=== PATIENT | male | born 1985 | race Two or more races ===

== ENCOUNTER 2025-01-14 02:28 | Emergency (ER) | payer BC, SELFPAY ==
[2025-01-14 02:29] VITALS: BMI 30.2
[2025-01-14 02:36] VITALS: BP 150/105; PULSE 70; RESP 16; TEMP 37.7; O2SAT 100; BMI 30.2
--- NOTE | 2025-01-14 02:44 | XR_ITS ---
Examination: PA chest single view TECHNIQUE: Upright PA chest single view Date and time: January 14, 2025 at 0256 hours, comparison October 05, 2020 INDICATIONS: Right-sided chest pain and back pain today FINDINGS: Normal heart size. Lungs are clear. The osseous structures are intact. IMPRESSION: No active disease.
--- NOTE | 2025-01-14 02:44 | EKG_ITS ---
[facility] Test Date: 2025-01-14 Pat Name: MIKEY GALVEZ Department: Room: - Gender: Male [employer]: : 1985 Requested By: Helio Rivers Order Number: [id number] Reading MD: Helio Rivers Measurements Intervals [place] Rate: 58 P: 55 NM: 158 QRS: 57 QRSD: 98 T: 9 QT: 415 QTc: 410 Interpretive Statements SINUS BRADYCARDIA No previous ECG available for comparison /store/S0/[id number]
--- NOTE | 2025-01-14 02:44 | XR_ITS ---
Examination: Ultrasound soft tissue extremity right shoulder TECHNIQUE: Grayscale sonographic images soft tissue right shoulder Date and time: January 14, 2025, 0310 hours INDICATIONS: Patient states a lump on the upper right shoulder 2 years FINDINGS: No cystic or solid mass noted IMPRESSION: No cystic or solid mass noted, consider MRI shoulder without contrast follow-up
--- NOTE | 2025-01-14 02:45 | EDRME_ITS ---
Rapid Medical Screening Exam [facility] Arrival date/time: 01/14/25 02:28 39M with no significant PMH presents to ED with sharp tearing, R upper back pain and intermittent CP and SOB. Patient also has had a lump on that same area for several years. Patient denies URI symptoms and drug/alcohol use. Patient feels like it's on the outside. Pain is worse when lying down, but better when taking a deep breath. Chief Complaint: Back Pain/Injury Vital signs: Vital Signs Temperature 99.8 F 01/14/25 02:36 Pulse Rate 70 01/14/25 02:36 Respiratory Rate 16 01/14/25 02:36 Blood Pressure 150/105 H 01/14/25 02:36 Pulse Oximetry (%) 100 01/14/25 02:36 Oxygen Delivery Method Room Air 01/14/25 02:36
--- NOTE | 2025-01-14 03:27 | PD.EDBACK ---
ED Back Injury Pain RME/HPI General Chief Complaint: Back Pain/Injury Stated Complaint: Pain upper back Time Seen by Provider: 01/14/25 03:22 Arrival date/time: 01/14/25 02:28 RME / HPI RME / HPI Narrative: 01/14/25 02:28 39M with no significant PMH presents to ED with sharp tearing, R upper back pain and intermittent CP and SOB. Patient also has had a lump on that same area for several years. Patient denies URI symptoms and drug/alcohol use. Patient feels like it's on the outside. Pain is worse when lying down, but better when taking a deep breath. DR. CHOWDHURY MAIN ED EVALUATION: 39 y/o male with Hx of HTN presents to ED c/o severe BL upper back pain x approximately 6 hours. Denies any recent injury or trauma. Denies any chest pain. No other concerns or complaints expressed at this time. Related Data Allergies Allergy/AdvReac Type Severity Reaction Status Date / Time No Known Allergies Allergy Verified 01/14/25 02:31 Review of Systems Review of Systems Systems Reviewed: All systems reviewed, normal except as documented Past Medical History Past Medical History CARDIAC: Positive Hypertension ED Exam Narrative Physical exam: Generally patient alert and oriented x 3 in no obvious distress heart is regular rate and rhythm without rubs or gallops lungs auscultation equal bilaterally abdomen soft bowel sounds present nondistended nontender musculoskeletal exam patient has an approximately 8 x 10 cm movable mass most likely lipoma to the central upper portion of the back. Course Course Course Narrative: CXR is ordered for determining the etiology of shortness of breath. Quality Measures none Orders Category Date Time Status EKG (ED ONLY) *Do not use* NOW Care 01/14/25 02:44 Completed EKG (ED Only) Stat Exams 01/14/25 02:44 Draft US sft tissue upper back chest Stat Exams 01/14/25 02:44 Taken XR chest 1V portable Stat Exams 01/14/25 02:44 Taken CBC Stat Lab 01/14/25 03:00 Completed Comprehensive Metabolic Panel Stat Lab 01/14/25 03:00 Completed Troponin I Stat Lab 01/14/25 03:00 Completed Ketorolac Inj [Toradol Inj] Med 01/14/25 03:36 Discontinued 30 mg IVP X1 ONE Vital Signs Vital signs: Vital Signs Temperature 99.8 F 01/14/25 02:36 Pulse Rate 70 01/14/25 02:36 Respiratory Rate 16 01/14/25 02:36 Blood Pressure 150/105 H 01/14/25 02:36 Pulse Oximetry (%) 100 01/14/25 02:36 Oxygen Delivery Method Room Air 01/14/25 02:36 Back Pain / Injury MDM Narrative MDM Narrative:: Scribe Attestation: I, Becky Kirby, am scribing for and in the presence of Dr. Chowdhury. Provider Notation: Although this document has been carefully reviewed, there may still be some phonetic and other typographical errors.? These errors are purely grammatical due to imperfections in the software program and should not be construed in any way to? compromise the substance of the patient's medical care during this visit. I interpreted all labs. Troponin is not elevated. Chest x-ray is normal with a normal cardiac silhouette. EKG is nonischemic. I do not believe this patient to have an acute coronary syndrome or dissecting thoracic aortic aneurysm. Heart score is 1. Patient data External records reviewed:: [facility] previous records (No prior ED records available for review.) Clinical information provided by:: patient Social determinants that could affect healthcare access:: none Patient has the following chronic illnesses:: HTN How is presenting disease/condition affected by chronic disease/condition?: exacerbated by Evaluation data The following diagnostics were reviewed and interpreted by me:: lab results, radiology exam(s) and EKG tracing(s) Lab and/or radiology exams considered but not ordered:: None Interpretation Summary: RADIOLOGY Soft Tissue US: Chest X-Ray: Medications / Prescriptions Medications or Prescriptions considered but not ordered:: None Medication administrations:: Medication Administration History Discontinued Medications Ketorolac Tromethamine (Ketorolac Inj 30 Mg/Ml Vial) 30 mg IVP X1 ONE Stop: 01/14/25 03:37 See above if any Consultations Consultation(s) initiated? (list below): No Diagnosis Differential diagnosis back pain/injury: thoracic back pain, discitis and other (Degenerative disc disease, Herniated disk, Muscle strain) Most likely diagnosis given after review of the tests above:: Musculoskeletal pain Admission Indicated Admission indicated?: not indicated Explain why admission is indicated or not indicated:: Patient does not meet admission criteria. Admission Request Was there a request for admission?: No Disposition Plan Disposition Plan: other (specify) Discharge Plan Plan Patient Disposition: HOME (Self Care) Prescriptions/Referrals Referrals: No Primary/Family,Physician [Primary Care Provider] - In 1 week Problem List Clinical Impression: Musculoskeletal pain, Lipoma Patient/Caregiver Discharge Instructions Additional Instructions: Take your high blood pressure medication every day as prescribed. You may use Tylenol and/or ibuprofen as needed for pain. Follow-up with your doctor. Return to ER as needed or if condition worsens. Print Language: Togolese Stand Alone Forms: [employer] Info., Patient Portal Info Letter
[2025-01-14 03:28] VITALS: BP 152/100; PULSE 65; RESP 18; O2SAT 97
[2025-01-14 03:29] LABS: Basophils # (Auto) 0.0 Thou/mm3 (0.0-0.2); Basophils % (Auto) 0 % (0-2.5); Eosinophils # (Auto) 0.5 Thou/mm3 (0.0-0.5); Eosinophils % (Auto) 4 % (0-10); Hematocrit 44.4 % (41.0-53.0); Hemoglobin 15.3 g/dL (13.5-16.0); Immature Granulocytes Auto 0.01 Thou/mm3 (0.00-0.00); Lymphocytes # (Auto) 2.8 Thou/mm3 (1.0-4.8); Lymphocytes % (Auto) 27 % (10-50); Mean Corpuscular HGB Conc 34.5 g/dl (31.0-37.0); Mean Corpuscular Hemoglobin 30.8 pg (25.0-35.0); Mean Corpuscular Volume 90 fL (80-100); Monocytes # (Auto) 0.7 Thou/mm3 (0.0-0.8); Monocytes % (Auto) 7 % (0-12); Neutrophils # (Auto) 6.5 Thou/mm3 (1.8-7.7); Neutrophils % (Auto) 62 % (37-80); Nucleated Red Blood Cell # 0.00 Thou/mm3 (0.00-0.00); Nucleated Red Blood Cell % 0 /100 WBC (0); Platelet Count 279 Thou/mm3 (140-440); RDW Standard Deviation 40.5 fL (35.1-43.9); Red Blood Count 4.96 Miln/mm3 (4.50-5.90); White Blood Count 10.5 Thou/mm3 (3.8-10.6)
[2025-01-14 03:38] LABS: Alanine Aminotransferase 18 U/L (10-49); Albumin, Serum 4.6 gm/dL (3.5-5.0); Albumin/Globulin Ratio 1.6 (1.2-2.2); Alkaline Phosphatase 77 U/L (46-116); Anion Gap 8 (7-16); Aspartate Amino Transferase 19 U/L (0-34); BUN/Creatinine Ratio 10 Ratio (12-20); Bilirubin,Total 0.4 mg/dL (0.3-1.2); Blood Urea Nitrogen 12 mg/dL (9-23); Calcium 9.8 mg/dL (8.3-10.6); Calcium (Corrected) 9.8 mg/dL (8.5-10.1); Carbon Dioxide 29.4 mMol/L (20.0-31.0); Chloride 106 mMol/L (98-107); Creatinine (Component) 1.2 mg/dL (0.6-1.3); Estimated Creatinine Clearance 78.1 mL/min (>60); Globulin 2.9 gm/dL (2.3-3.5); Glucose 99 mg/dL (74-106); Osmolality,Calculated 284 (275-295); Potassium 4.0 mMol/L (3.4-5.1); Sodium 143 mMol/L (136-145); Total Protein 7.5 gm/dL (5.7-8.2); Troponin I < 0.020 ng/mL (0.0-0.045); eGFR > 60 See Note
--- NOTE | 2025-01-14 04:05 | PRELIM_ITS ---
Soft tissue ultrasound of the Right upper back. January 14, 2025 0310 hours Clinical history: Bump on right upper back. Comparison: No prior study is available for comparison. Findings: Ultrasound evaluation of the right upper shoulder region was performed. No solid mass or fluid collection is demonstrated. There is no sonographic evidence of free fluid in the area of concern. The subcutaneous and soft tissue planes appear preserved. Impression: No sonographic evidence of mass or fluid collection in the right upper shoulder. Report Electronically Signed By: Guerrero Barajas 01/14/2025 4:04:50 AM [EST]
[2025-01-14 04:09] VITALS: TEMP 36.6
[2025-01-14] MEDS: KETOROLAC INJ 30 MG/ML VIAL IVP (04:09)
[2025-01-14 04:20] VITALS: BP 162/99; PULSE 64; RESP 17; O2SAT 96
--- NOTE | 2025-01-14 04:36 | PC.NURSE ---
pts pain reassesed to a 4
== END 2025-01-14 04:20 | disposition home or self-care (01) ==
PROVIDERS: Physician Assistant; Emergency Provider Emergency Medicine
DX: D17.1 Benign lipomatous neoplasm of skin and subcutaneous tissue of trunk (principal); R07.9 Chest pain, unspecified; R00.1 Bradycardia, unspecified; M79.18 Myalgia, other site; I10 Essential (primary) hypertension
CPT/HCPCS: 36415; 71045; 76604; 80053; 84484; 85025; 93005; 96374; 99283; J1885

== ENCOUNTER 2025-01-16 06:16 | Emergency (ER) | payer BC, SELFPAY ==
[2025-01-16 06:18] VITALS: BMI 30.2
[2025-01-16 06:33] VITALS: BP 194/122; BP 201/117; PULSE 65; RESP 19; TEMP 36.3; O2SAT 99
--- NOTE | 2025-01-16 06:35 | EKG_ITS ---
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
--- NOTE | 2025-01-16 06:40 | XR_ITS ---
Examination: Abdomen sonogram, Limited Date and time of exam: January 16, 2025 0822 hours INDICATIONS: Epigastric pain today Technique: Real-time blake scale transabdominal sonographic images of the upper abdomen obtained. Findings: Gallbladder sludge No gallstones Gallbladder wall 0.39 cm with possible edema Common bile duct 0.5 cm Pancreatic head 2.2 cm Liver 15.4 cm fatty infiltration no focal liver lesions Normal hepatopedal portal venous flow Patent IVC IMPRESSION: Suspicious for acalculous cholecystitis, suggest HIDA scan or MRCP follow-up
--- NOTE | 2025-01-16 06:43 | EDNOTE_ITS ---
<Statement entered by Madyson Vizcarra MD - 01/16/25 17:11> As co-signing physician, I was present and available for consult prn. I concur with the plan and care as documented by the midlevel provider. ED Abdominal Pain RME/HPI General Chief Complaint: Abdominal Pain Stated complaint: EPIGASTRIC PAIN Time seen by provider: 01/16/25 06:29 Arrival date/time: 01/16/25 06:16 39-year-old male with no known medical history presents to the emergency room with a chief complaint of epigastric pain x 2 days Source: patient Mode of arrival: ambulatory Limitations: no limitations Related Data Previous Rx's ?Medication ?Instructions ?Recorded hydrocodone 5 mg-acetaminophen 325 1 tab PO BID PRN pa in #10 tabs 01/16/25 mg tablet Allergies Allergy/AdvReac Type Severity Reaction Status Date / Time No Known Allergies Allergy Verified 01/16/25 06:17 Review of Systems Review of Systems Systems Reviewed: All systems reviewed, normal except as documented Constitutional Constitutional: Reports system reviewed and no additional complaints, except as documented, Denies fatigue, Denies fever(s), Denies headache(s) and Denies weakness Eyes Eyes: Reports system reviewed and no additional complaints, except as documented, Denies blurry vision and Denies change in vision ENT Ears, Nose, Mouth, and Throat: Reports system reviewed and no additional complaints, except as documented, Denies otalgia, Denies headache(s), Denies nasal congestion, Denies throat swelling and Denies vertigo Cardiovascular Cardiovascular: Reports system reviewed and no additional complaints, except as documented, Denies chest pain, Denies dyspnea and Denies dyspnea on exertion Respiratory Respiratory: Reports system reviewed and no additional complaints, except as documented, Denies chest congestion, Denies cough, Denies dyspnea, Denies dyspnea on exertion and Denies wheezing Gastrointestinal Gastrointestinal: Reports system reviewed and no additional complaints, except as documented, Reports abdominal pain, Reports cramping, Reports nausea and Reports vomiting Genitourinary Genitourinary: Reports system reviewed and no additional complaints, except as documented, Denies dysuria and Denies hematuria Musculoskeletal Musculoskeletal: Reports system reviewed and no additional complaints, except as documented and Denies back pain Integumentary/Breasts Skin/Breast: Reports system reviewed and no additional complaints, except as documented and Denies wounds Neurologic Neurologic: Reports system reviewed and no additional complaints, except as documented, Denies confusion, Denies headache(s), Denies lack of coordination, Denies vertigo and Denies weakness Psychiatric Psychiatric: Reports system reviewed and no additional complaints, except as documented, Denies anxiety, Denies confusion, Denies depression, Denies paranoia, Denies suicidal ideation and Denies tactile hallucinations Endocrine Endocrine: Reports system reviewed and no additional complaints, except as documented and Denies fatigue Hematologic/Lymphatic Hematologic/Lymphatic: Reports system reviewed and no additional complaints, except as documented and Denies lymphadenopathy Allergic/Immunologic Allergic/Immunologic: Reports system reviewed and no additional complaints, except as documented, Denies throat swelling, Denies urticaria and Denies wheezing Past Medical History Past Medical History CARDIAC: Positive Hypertension; Negative Congestive Heart Failure RESPIRATORY: Negative Chronic Obstructive Pulmonary Disease (COPD) GENITOURINARY: Negative Renal Disease ENDOCRINE: Negative Diabetes Mellitus Type 1 or Diabetes Mellitus Type 2 Social History SMOKING STATUS: Never smoker ED Exam General Limitations: Present no limitations General appearance: Present alert and in no apparent distress Head Head exam: Present atraumatic Eye Eye exam: Present normal appearance, PERRL and EOMI ENT ENT exam: Present normal exam, normal oropharynx and mucous membranes moist Neck Neck exam: Present normal inspection, full ROM and trachea midline Chest Chest inspection: Present normal inspection and symmetric chest wall rise Respiratory Respiratory exam: Present normal lung sounds bilaterally Cardiovascular Cardiovascular exam: Present regular rate, normal rhythm and normal heart sounds Abdominal Exam Abdominal exam: Present soft, tenderness, normal bowel sounds and An's sign Abdominal tenderness: Present RUQ and moderate Extremities Exam Extremities exam: Present normal inspection and full ROM Back Exam Back exam: Present normal inspection and full ROM Neurological Exam Neurological exam: Present alert, oriented X3 and CN II-XII intact Psychiatric Psychiatric exam: Present normal affect and normal mood Skin Skin exam: Present warm, dry, intact and normal color Course Quality Measures none Orders Category Date Time Status EKG (ED ONLY) *Do not use* NOW Care 01/16/25 06:35 Completed EKG (ED Only) Stat Exams 01/16/25 06:35 Draft US gall bladder Stat Exams 01/16/25 06:40 Completed CBC Stat Lab 01/16/25 06:49 Completed CMP [Comprehensive Metabolic Panel] Stat Lab 01/16/25 06:49 Completed Lipase Stat Lab 01/16/25 06:49 Completed UA [Urinalysis] Stat Lab 01/16/25 06:59 Completed Urine Culture Stat Lab 01/16/25 06:59 Received HYDROcodone*/APAP 5/325 [[place] 5/325] Med 01/16/25 06:40 Discontinued 1 tab PO X1 ONE Ondansetron Odt [Zofran Odt] Med 01/16/25 06:40 Discontinued 4 mg PO X1 ONE hydrALAZINE INJ [Apresoline Inj] Med 01/16/25 06:41 Discontinued 10 mg IVP X1 ONE mg Hyd/Al Hyd/Izzy Susp [Maalox Susp] Med 01/16/25 06:40 Discontinued 30 ml PO X1 ONE Vital Signs Vital signs: Vital Signs Temperature 97.4 F 01/16/25 06:33 Pulse Rate 65 01/16/25 06:33 Respiratory Rate 19 01/16/25 06:33 Blood Pressure 201/117 H 01/16/25 06:33 Pulse Oximetry (%) 99 01/16/25 06:33 Oxygen Delivery Method Room Air 01/16/25 06:33 O2 saturation 99% within normal limits Abdominal Pain MDM MDM Narrative MDM Narrative:: 39-year-old male with no known medical history presents to the emergency room with a chief complaint of epigastric pain x 2 days Patient is hemodynamically stable and in no apparent distress Physical examination shows tenderness and pain to the patient's right upper quadrant with palpation. The patient has a positive An sign. Patient has nausea vomiting CT of the abdomen and pelvis shows suspicion for acalculous cholecystitis. The patient has a normal WBC count but some mildly elevated liver enzymes. Dr. Arias our general surgeon on-call was consulted and she came down to see the patient. Based on her and the patient's interaction Dr. Arias states that the patient is ready to go home as he wants to talk to his at home before having surgery Patient was discharged and educated to follow-up with primary care provider in the next 24 to 48 hours and return to the emergency room for any evidence of worsening signs or symptoms Patient data External records reviewed:: [facility] previous records Clinical information provided by:: patient Social determinants that could affect healthcare access:: none Patient has the following chronic illnesses:: No chronic illness How is presenting disease/condition affected by chronic disease/condition?: no chronic disease Evaluation data The following diagnostics were reviewed and interpreted by me:: lab results and radiology exam(s) Lab and/or radiology exams considered but not ordered:: Labs and radiology exams considered in order Interpretation Summary: CT abdomen and pelvis-Findings: Gallbladder sludge No gallstones Gallbladder wall 0.39 cm with possible edema Common bile duct 0.5 cm Pancreatic head 2.2 cm Liver 15.4 cm fatty infiltration no focal liver lesions Normal hepatopedal portal venous flow Patent IVC IMPRESSION: Suspicious for acalculous cholecystitis, suggest HIDA scan or MRCP follow-up Medications / Prescriptions Medications or Prescriptions considered but not ordered:: Medication given Medication administrations:: Medication Administration History Discontinued Medications Hydrocodone Bitart/Acetaminophen (Hydrocodone/Apap 5/325 Tablet) 1 tab PO X1 ONE Stop: 01/16/25 06:41 Last Admin: 01/16/25 07:52 Dose: 1 tab Documented By: TE Al Hydrox/Mg Hydrox/Simethicone (Mg Hyd/Al Hyd/Izzy (Maalox Reg) Susp 30 Ml Udc) 30 ml PO X1 ONE Stop: 01/16/25 06:41 Last Admin: 01/16/25 07:53 Dose: 30 ml Documented By: TE Hydralazine HCl (Hydralazine Inj 20 Mg/Ml Vial) 10 mg IVP X1 ONE Stop: 01/16/25 06:42 Last Admin: 01/16/25 07:59 Dose: 10 mg Documented By: TE Ondansetron HCl (Ondansetron Odt 4 Mg Tabrap) 4 mg PO X1 ONE; Protocol Stop: 01/16/25 06:41 Last Admin: 01/16/25 07:54 Dose: 4 mg Documented By: TE Medication given Consultations Consultation(s) initiated? (list below): No Diagnosis Differential diagnosis abdominal pain: abdominal pain and other (Cholecystitis/cholelithiasis) Most likely diagnosis given after review of the tests above:: Cholecystitis Admission Indicated Admission indicated?: not indicated Admission Request Was there a request for admission?: No Disposition Plan Disposition Plan: Discharge Discharge Attestation Discharge Attestation: The patient and all family members were given an opportunity to ask questions and understood the discharge instructions. Discharge instructions specifically effects, indications for sooner follow up or return to the emergency department, and the expected course of current diagnosis. Patient condition: Stable Discharge Plan Plan Patient Disposition: HOME (Self Care) Discharge Disposition comment: Stable Patient condition on transfer: Stable Prescriptions/Referrals Prescriptions/Med Rec: New hydrocodone-acetaminophen 5-325 mg tablet 1 tab PO BID MDD 10mg PRN (Reason: pain) Qty: 10 0RF Referrals: No Primary/Family,Physician [Primary Care Provider] - In 1 week Problem List Clinical Impression: Biliary colic Patient/Caregiver Discharge Instructions Education Materials: Discharge Instructions for ... Additional Instructions: Please follow-up with your primary care provider in the next 24 to 48 hours You saw the general surgeon and decided that you will have your gallbladder removed and in an outpatient setting For any evidence of worsening signs or symptoms return to the emergency room immediately Print Language: Maltese Stand Alone Forms: [employer] Info., Patient Portal Info Letter PA/APPLICATION HELPER Supervising Physician PA/APPLICATION HELPER Supervising Physician: Dr. VIZCARRA
[2025-01-16 07:10] LABS: Collection Type, Urine Clean Catch
[2025-01-16 07:19] LABS: Basophils # (Auto) 0.1 Thou/mm3 (0.0-0.2); Basophils % (Auto) 1 % (0-2.5); Eosinophils # (Auto) 0.3 Thou/mm3 (0.0-0.5); Eosinophils % (Auto) 4 % (0-10); Hematocrit 46.3 % (41.0-53.0); Hemoglobin 15.5 g/dL (13.5-16.0); Immature Granulocytes Auto 0.02 Thou/mm3 (0.00-0.00); Lymphocytes # (Auto) 2.3 Thou/mm3 (1.0-4.8); Lymphocytes % (Auto) 26 % (10-50); Mean Corpuscular HGB Conc 33.5 g/dl (31.0-37.0); Mean Corpuscular Hemoglobin 30.2 pg (25.0-35.0); Mean Corpuscular Volume 90 fL (80-100); Monocytes # (Auto) 0.8 Thou/mm3 (0.0-0.8); Monocytes % (Auto) 9 % (0-12); Neutrophils # (Auto) 5.4 Thou/mm3 (1.8-7.7); Neutrophils % (Auto) 61 % (37-80); Nucleated Red Blood Cell # 0.00 Thou/mm3 (0.00-0.00); Nucleated Red Blood Cell % 0 /100 WBC (0); Platelet Count 263 Thou/mm3 (140-440); RDW Standard Deviation 39.9 fL (35.1-43.9); Red Blood Count 5.13 Miln/mm3 (4.50-5.90); White Blood Count 8.9 Thou/mm3 (3.8-10.6)
[2025-01-16 07:32] LABS: Bilirubin,Urine Negative (Negative); Blood,Urine Negative (Negative); Clarity,Urine Clear (Clear/Hazy); Color,Urine Yellow (Lt Yel-Yel); Glucose, Urine Negative (Negative); Hyaline Casts,Urine < 1 /hpf (0-1); Ketones,Urine Negative (Negative); Leukocyte Esterase,Urine Negative (Negative); Nitrite,Urine Negative (Negative); PH,Urine 5.5 (5.0-7.0); Protein,Urine Trace (Neg - Trace); RBC,Urine 1 /hpf (0-3); Specific Gravity,Urine 1.022 (1.001-1.035); Squamous Epithelial Cell,Urine < 1 /hpf (0-5); Urobilinogen,Urine Negative mg/dL (0.0-1.0); WBC,Urine 10 /hpf (0-5)
[2025-01-16 07:39] LABS: Alanine Aminotransferase 102 U/L (10-49); Albumin, Serum 4.9 gm/dL (3.5-5.0); Albumin/Globulin Ratio 1.7 (1.2-2.2); Alkaline Phosphatase 90 U/L (46-116); Anion Gap 10 (7-16); Aspartate Amino Transferase 103 U/L (0-34); BUN/Creatinine Ratio 8 Ratio (12-20); Bilirubin,Total 0.4 mg/dL (0.3-1.2); Blood Urea Nitrogen 10 mg/dL (9-23); Calcium 9.6 mg/dL (8.3-10.6); Calcium (Corrected) 9.6 mg/dL (8.5-10.1); Carbon Dioxide 27.6 mMol/L (20.0-31.0); Chloride 106 mMol/L (98-107); Creatinine (Component) 1.2 mg/dL (0.6-1.3); Estimated Creatinine Clearance 78.1 mL/min (>60); Globulin 2.9 gm/dL (2.3-3.5); Glucose 113 mg/dL (74-106); Lipase 32 U/L (12-53); Osmolality,Calculated 286 (275-295); Potassium 3.9 mMol/L (3.4-5.1); Sodium 144 mMol/L (136-145); Total Protein 7.8 gm/dL (5.7-8.2); eGFR > 60 See Note
[2025-01-16] MEDS: HYDROcodone/APAP 5/325 TABLET 1 TAB PO (07:52)
[2025-01-16] MEDS: MG HYD/AL HYD/SIME (Maalox Reg) SUSP 30 ML UDC PO (07:53)
[2025-01-16] MEDS: ONDANSETRON ODT 4 MG TABRAP PO (07:54)
[2025-01-16 07:59] VITALS: BP 156/107; PULSE 63
[2025-01-16] MEDS: hydrALAZINE INJ 20 MG/ML VIAL 10 MG IVP (07:59)
[2025-01-16 08:45] VITALS: BP 150/88; PULSE 88; RESP 17; TEMP 36.7; O2SAT 98
[2025-01-16 10:38] VITALS: BP 144/84; PULSE 88; RESP 18; TEMP 36.9; O2SAT 98
[2025-01-16 13:02] VITALS: BP 159/95; PULSE 75; RESP 17; TEMP 36.7; O2SAT 98
== END 2025-01-16 14:08 | disposition home or self-care (01) ==
PROVIDERS: Nurse Practitioner Family; Emergency Provider Emergency Medicine
DX: K80.50 Calculus of bile duct without cholangitis or cholecystitis without obstruction (principal); R00.1 Bradycardia, unspecified; R74.8 Abnormal levels of other serum enzymes; I10 Essential (primary) hypertension
CPT/HCPCS: 36415; 76705; 80053; 81001; 83690; 85025; 87077; 87086; 87186; 93005; 96374; 99283; J0360; Q0162; A9270

== ENCOUNTER 2025-01-18 13:23 | Outpatient (AMB) | payer BC, SELFPAY ==
--- NOTE | 2025-01-18 13:26 | PD.GSCLVISIT ---
Vital Signs - [facility] 01/18/25 13:30 Height 1.63 m Height Method Measured Weight 78.557 kg Weight Measurement Method Standing Scale BMI 29.7 BP 149/99 H Blood Pressure Source Automatic Cuff Blood Pressure Location Left Upper Arm Position Sitting Respiration 18 Pulse 69 Pulse Source Monitor Temp 97.7 F Temp Source Temporal Artery Scan Pulse Oximetry (%) 96 Oxygen Delivery Method Room Air Med/Allergies Allergies & Medications Allergies No Known Allergies Allergy (Verified 01/18/25 13:35) Medication Reconciliation hydrocodone 5 mg-acetaminophen 325 mg tablet 1 tab PO BID PRN pain #10 tabs 01/16/25 [Rx Confirmed 01/18/25] MA Intake Visit Data Collection New Patient or Established: Established Patient (seen at [facility] within 3 years) Seen by Clinical Staff ONLY (RN/MA): No Reason for Visit:: ABDOMINAL PAIN Pain Present Currently: Yes Pain Location: Abdomen Pain scale:: 2 Pain Scale Used: [place]/Numerical Front Office Java Developer Required: No PCP or OBGYN visit in last 3 months: Yes Hx Now: No Do You Feel Safe at Home: Yes Authorities Contacted: N/A Smoking Status Smoking Status: Never smoker Immunization / Flu Flu Vaccine in the Last 12 Months: No Flu Vaccine Exclusion Criteria: No Exclusion Criteria Past Medical History Past Medical History CARDIAC: Positive Hypertension; Negative Congestive Heart Failure RESPIRATORY: Negative Chronic Obstructive Pulmonary Disease (COPD) GENITOURINARY: Negative Renal Disease ENDOCRINE: Negative Diabetes Mellitus Type 1 or Diabetes Mellitus Type 2 Social History SMOKING STATUS: Smoking status: Never smoker HPI HPI Narrative 39M here for follow up of ER visit. Pt reports he has been having pain in the RUQ on and off since Thursday, worsened after eating and initially radiating to the back. Pt denies history of similar pain in the past and denies any associated nausea/vomiting/fever/diarrhea. Because pain increased over weekend he went to ER and was found to have sludge with questionable wall thickening, but his pain resolved and he preferred to follow up as an outpt. Pt states he had a little more pain after eating sushi yesterday but it is manageable now and he has no new complaints. He conferred with his family and is now interested in having surgery ANNA PMH: HTN PSHx: None Meds: Lisinopril Allergies: NKDA Social hx: Nonsmoker Family hx: No known malignancy ROS Review of Systems Systems Reviewed: All systems reviewed, normal except as documented Objective/Exam General General Appearance: alert, cooperative and well groomed Resp Respiratory exam: Absent respiratory distress Abdominal Abdominal exam: Present soft; Absent distention or tenderness Results US reviewed Assessment & Plan Diagnosis / Problem List (1) Biliary colic: Status: Acute Assessment & Plan: 39M presenting with signs and symptoms of biliary colic. I explained benefits/risks of surgery including need for converison to open, bleeding, infection, and injury to nearby structures requiring further procedures including a potential need for biliary reconstruction which would require transfer to another hospital. I also explained the potential for postoperative hernia and diarrhea. All questions were answered and pt is agreeable to proceeding Office Procedures GNS Level of Care Nursing/Assessment Patient Status: Established Patient Nursing Assessment/Reassesment: Medication Reconciliation, Update PMH in EMR and Vital Signs Coordination of Care: Complex Care and Chronic Disease 1-5, Consent,records obtained, informed consent, Education Simp Pt/Fam, Results/Orders obtained and Staff clarify orders Established Patient Charge Established Patient Point Assignment: 90 Established Patient Point Charge: EP Level 3 (80-115) Patient Portal Questionaires Social History Tobacco History Smoking Status: Never smoker Domestic Abuse History Do You Feel Safe at Home: Yes Review of Systems Report any current symptoms Only answer those that you have currently: Past Medical History Past Medical History Have you ever been diagnosed with any of the following: Cardiology Problems Congestive Heart Failure: No Hypertension: Yes Respiratory Problems Chronic Obstructive Pulmonary Disease (COPD): No Genital/Urinary Problems Renal Disease: No Endocrine Problems Diabetes Mellitus Type 1: No Diabetes Mellitus Type 2: No
[2025-01-18 13:30] VITALS: BP 149/99; PULSE 69; RESP 18; TEMP 36.5; O2SAT 96; BMI 29.7
== END 2025-01-18 13:44 | disposition home or self-care (01) ==
LOC: HODSRG 13:23
PROVIDERS: Supervising Provider Surgery; Visit Provider Surgery
DX: K80.50 Calculus of bile duct without cholangitis or cholecystitis without obstruction (principal); I10 Essential (primary) hypertension
CPT/HCPCS: 99213; G0463

== ENCOUNTER 2025-01-25 08:00 | Day surgery (SDC) | payer BC, SELFPAY ==
[2025-01-24 07:08] VITALS: BMI 29.5
[2025-01-24 07:36] LABS: Basophils # (Auto) 0.1 Thou/mm3 (0.0-0.2); Basophils % (Auto) 1 % (0-2.5); Eosinophils # (Auto) 0.4 Thou/mm3 (0.0-0.5); Eosinophils % (Auto) 5 % (0-10); Hematocrit 45.1 % (41.0-53.0); Hemoglobin 14.9 g/dL (13.5-16.0); Immature Granulocytes Auto 0.01 Thou/mm3 (0.00-0.00); Lymphocytes # (Auto) 2.4 Thou/mm3 (1.0-4.8); Lymphocytes % (Auto) 33 % (10-50); Mean Corpuscular HGB Conc 33.0 g/dl (31.0-37.0); Mean Corpuscular Hemoglobin 30.1 pg (25.0-35.0); Mean Corpuscular Volume 91 fL (80-100); Monocytes # (Auto) 0.6 Thou/mm3 (0.0-0.8); Monocytes % (Auto) 8 % (0-12); Neutrophils # (Auto) 3.8 Thou/mm3 (1.8-7.7); Neutrophils % (Auto) 53 % (37-80); Nucleated Red Blood Cell # 0.00 Thou/mm3 (0.00-0.00); Nucleated Red Blood Cell % 0 /100 WBC (0); Platelet Count 285 Thou/mm3 (140-440); RDW Standard Deviation 40.4 fL (35.1-43.9); Red Blood Count 4.95 Miln/mm3 (4.50-5.90); White Blood Count 7.3 Thou/mm3 (3.8-10.6)
[2025-01-24 07:52] LABS: INR 1.0 (0.9-1.3); Partial Thromboplastin Time 30.5 Seconds (22.0-36.0); Prothrombin Time 11.4 Seconds (9.0-12.2)
[2025-01-24 07:55] LABS: Alanine Aminotransferase 74 U/L (10-49); Albumin, Serum 4.5 gm/dL (3.5-5.0); Albumin/Globulin Ratio 1.7 (1.2-2.2); Alkaline Phosphatase 83 U/L (46-116); Anion Gap 9 (7-16); Aspartate Amino Transferase 28 U/L (0-34); BUN/Creatinine Ratio 10 Ratio (12-20); Bilirubin,Total 0.6 mg/dL (0.3-1.2); Blood Urea Nitrogen 11 mg/dL (9-23); Calcium 9.4 mg/dL (8.3-10.6); Calcium (Corrected) 9.4 mg/dL (8.5-10.1); Carbon Dioxide 27.0 mMol/L (20.0-31.0); Chloride 107 mMol/L (98-107); Creatinine (Component) 1.1 mg/dL (0.6-1.3); Estimated Creatinine Clearance 84.3 mL/min (>60); Globulin 2.6 gm/dL (2.3-3.5); Glucose 92 mg/dL (74-106); Osmolality,Calculated 284 (275-295); Potassium 4.3 mMol/L (3.4-5.1); Sodium 143 mMol/L (136-145); Total Protein 7.1 gm/dL (5.7-8.2); eGFR > 60 See Note
[2025-01-25] VITALS (7 sets, daily range): BP systolic 133–172; BP diastolic 88–103; PULSE 56–71; RESP 12–20; TEMP 36.2–36.3; O2SAT 97–100; BMI 291.2
[2025-01-25] MEDS: RINGERS LACTATED 1000 ML 1,000 ML 20 ML IV (08:40)
--- NOTE | 2025-01-25 10:10 | CHAP ---
Prayed with patient fro upcoming procedure.
--- NOTE | 2025-01-25 11:19 | PD.SUROPNT ---
Date of Procedure 01/25/25 Pre Op Diagnosis Biliary colic Post Op Diagnosis Same Procedure Laparoscopic cholecystectomy Findings Distended gallbladder Procedure Description After discussion of risks and benefits, patient was brought to the operating room, SCDs were placed and general anesthesia was induced. He received preoperative antibiotics and was prepped and draped in usual sterile fashion. After timeout a supraumbilical incision was made with a #11 blade and the skin was elevated with towel clamps. A Veress needle was placed through the incision and proper positioning was confirmed with a drop test. The abdomen was insufflated to 15 mmHg at which point the Veress needle was exchanged for a 5 mm camera using a visiport technique. There were no signs of injury from the point of entry. 3 additional ports were placed under direct vision, one 12 mm at the epigastrium, one 5 mm right subcostal and one 5 mm right anterior axillary line. Patient was placed in reverse Trendelenburg with left side down. The fundus of the gallbladder was grasped retracted cephalad and the infundibulum was grasped retracted laterally. The critical view of safety was achieved and the cystic duct and cystic artery were clipped and transected in the usual fashion. There is a small accessory artery posterior to the gallbladder that was also clipped and transected in the usual fashion. The gallbladder was removed from the gallbladder bed using electrocautery and the specimen was removed in an Endo Catch bag via the epigastric port. The gallbladder bed was irrigated and hemostasis was achieved with electrocautery. The epigastric fascia was closed with 0 Vicryl using a Riky-Hiram. Again the gallbladder bed was examined and there were no signs of active bleeding. Pneumoperitoneum was released and ports were removed under direct vision. Incisions were infiltrated with half percent Marcaine for a total of 30 cc. Incisions were closed with 4-0 Monocryl and reinforced with Dermabond. Patient was extubated and brought to PACU in stable condition Pathology / specimen Other (Gallbladder) Estimated Blood Loss 25 Surgeon Charlotte Jenkins MD Surgical Staff Operation Date: 01/25/25 10:15 Case Staff Anesthesiologist: Clark Saravia RN First Assistant: Shikha Kumar
--- NOTE | 2025-01-25 11:23 | PD.SURDS ---
Planned Discharge Date 01/25/25 DS: Providers Provider Primary care physician: David Barakat MD Attending Provider on Admission: Charlotte Jenkins MD Attending Provider on DC: Charlotte Jenkins MD Discharging Provider: Charlotte Jenkins MD Diagnosis Discharge Diagnosis (1) Biliary colic: Status: Acute Problem List Completed Was Problem List Reviewed/Reconciled?: Yes Exam Vital Signs Temp Pulse Resp BP Pulse Ox 97.4 F 64 12 133/88 H 97 01/25/25 08:40 01/25/25 08:40 01/25/25 08:40 01/25/25 08:40 01/25/25 08:40 Discharge Plan Plan Patient Disposition: HOME (Self Care) Prescriptions/Referrals Prescriptions/Med Rec: New oxycodone-acetaminophen [Percocet] 5-325 mg tablet 1 tab PO Q4H MDD 6 tabs PRN (Reason: pain) Qty: 10 0RF Rx Instructions: Take 1 tablet as needed every 4-6 hours for moderate to severe pain No Action lisinopril 20 mg tablet 20 mg PO QDAY Referrals: Charlotte Jenkins MD [Physician] - (You will receive a phone call to confirm a follow-up appointment with me in 2 weeks) David Barakat([facility])MD [Primary Care Provider] - Patient/Caregiver Discharge Instructions Other Discharge Activity Instructions:: Avoid lifting objects greater than 10 pounds for 6 weeks You may resume showering in 2 days, on 01/27 Avoid bathing or swimming for 2 weeks Your incisions have skin glue on them which will fall off on its own and does not need to be replaced Your stitches will not need to be removed During the surgery we fill your abdomen with a air in order to see the structures. Some of this air tends to linger and cause pain that is referred to the shoulder as well as pain with deep breaths. This will get better with time. Being out of bed and walking will help with the air to absorb faster If you develop worsening pain, nausea/vomiting, fever or jaundice please seek care in ER Education Materials: Cholecystectomy Laparoscopic Dc, Preventing Surgical Site Infections Print Language: Citizen Of [place] Stand Alone Forms: Charley Award Info., Patient Portal Info Letter Discharge Order Discharge Orders: Discharge (Routine); Ordered 01/25/25 Ordered By: Charlotte Jenkins Results Results: Laboratory Laboratory results: results reviewed Results: Imaging US - abdomen: report reviewed PROCEDURES: Procedure Date 01/25/25 Procedures Laparoscopic cholecystectomy
--- NOTE | 2025-01-25 11:37 | SUR.PHASEI ---
1137 Patient arrived to recovery resting comfortably in [facility], drowsy and able to arouse with verbal prompting, on oxygen 6L via oxy mask, breathing unlabored, vital signs stable, denies pain and nausea, report received from Dr. Saravia and Minda CHENEY
--- NOTE | 2025-01-25 12:33 | SUR.PHASEII ---
1233 Patient meets discharge criteria from recovery, awake and alert, breathing unlabored, vital signs stable, denies pain, dressing intact; no bleeding noted, drinking fluids; denies nausea, patient assisted with dressing into his clothing by his , discharge instructions given to patient and patients , signed discharge instructions. Patient given all his belongings prior to discharge, transported via wheelchair and left in a private vehicle.
== END 2025-01-25 12:33 | disposition home or self-care (01) ==
PROVIDERS: Anesthesiology; PCP Family Medicine; Referring Provider Surgery; Visit Provider Surgery
PROC: 0FT44ZZ Resection of Gallbladder, Percutaneous Endoscopic Approach (ICD-10-PCS; CPT 47562; principal; 2025-01-25 10:00)
DX: K80.64 Calculus of gallbladder and bile duct with chronic cholecystitis without obstruction (principal)
CPT/HCPCS: 47562; 36415; 80053; 85025; 85610; 85730; A4217; A4649; J0131; J0694; J2250; J2704; J3010; J3490; J7120

== ENCOUNTER 2025-01-28 01:46 | Emergency (ER) | payer BC, SELFPAY ==
[2025-01-28 01:48] VITALS: BMI 29.2
[2025-01-28 01:57] VITALS: BP 178/104; PULSE 66; RESP 19; TEMP 36.6; O2SAT 96
--- NOTE | 2025-01-28 02:12 | XR_ITS ---
Examination: CT abdomen with intravenous contrast CT pelvis with intravenous contrast 2-D coronal reconstructions 2-D sagittal reconstructions Date and time of exam:January 28, 2025, 0257 hours INDICATIONS: Status post cholecystectomy January 25, 2025 with epigastric pain and right upper abdominal pain postop. CTDI: vol (mGy) 6.80. DLP: (mGycm) 445. Technique: Multiple axial sections of the abdomen and pelvis have been obtained. 64 slice high-resolution scanner used. 3 mm axial sections have been obtained, post intravenous injection 60 cc Isovue 370. 2-D sagittal, coronal reconstructions obtained. Low dose protocols were performed. One or more of the following dose reduction techniques were used; automated exposure control, adjustment of the mA and/or KV according to patient size, use of iterative reconstruction technique. Findings: Atelectasis versus pneumonia right base Pneumoperitoneum Postoperative change in the anterior abdominal wall Surgical clips in the gallbladder fossa with very minimal postoperative changes No gallbladder fossa abscess, no biloma 14 mm cyst in the tail of pancreas Normal adrenal glands 10 mm left renal cyst Normal appendix No bowel obstruction No diverticulitis Urinary bladder are intact No prostatomegaly Small fat-containing left inguinal hernia IMPRESSION: Minor postoperative changes postcholecystectomy No abscess in the gallbladder fossa No biloma noted 14 mm cyst in the tail of pancreas Normal appendix No bowel obstruction
--- NOTE | 2025-01-28 02:26 | XR_ITS ---
Examination: Abdomen sonogram, Limited Date and time of exam: January 28, 2025, 0238 hours INDICATIONS: Status post cholecystectomy 3 days ago with right upper abdominal pain, severe Technique: Real-time blake scale transabdominal sonographic images of the upper abdomen obtained. Findings: No abscess in the gallbladder fossa Common bile duct 0.3 cm no stones Pancreatic area 2.8 cm Liver 15.3 cm no focal liver lesions Normal hepatopedal portal venous flow Patent IVC IMPRESSION: No abscess or biloma in the gallbladder fossa
[2025-01-28] MEDS: ONDANSETRON INJ 2 MG/ML INJ 2 ML 4 MG IV (02:35)
[2025-01-28] MEDS: MORPHINE SULF INJ 10 MG/ML VIAL 5 MG IVP (02:35)
[2025-01-28 02:38] LABS: Basophils # (Auto) 0.1 Thou/mm3 (0.0-0.2); Basophils % (Auto) 0 % (0-2.5); Eosinophils # (Auto) 0.3 Thou/mm3 (0.0-0.5); Eosinophils % (Auto) 3 % (0-10); Hematocrit 43.4 % (41.0-53.0); Hemoglobin 14.9 g/dL (13.5-16.0); Immature Granulocytes Auto 0.02 Thou/mm3 (0.00-0.00); Lymphocytes # (Auto) 2.8 Thou/mm3 (1.0-4.8); Lymphocytes % (Auto) 25 % (10-50); Mean Corpuscular HGB Conc 34.3 g/dl (31.0-37.0); Mean Corpuscular Hemoglobin 31.0 pg (25.0-35.0); Mean Corpuscular Volume 90 fL (80-100); Monocytes # (Auto) 0.8 Thou/mm3 (0.0-0.8); Monocytes % (Auto) 7 % (0-12); Neutrophils # (Auto) 7.3 Thou/mm3 (1.8-7.7); Neutrophils % (Auto) 65 % (37-80); Nucleated Red Blood Cell # 0.00 Thou/mm3 (0.00-0.00); Nucleated Red Blood Cell % 0 /100 WBC (0); Platelet Count 261 Thou/mm3 (140-440); RDW Standard Deviation 40.2 fL (35.1-43.9); Red Blood Count 4.81 Miln/mm3 (4.50-5.90); White Blood Count 11.3 Thou/mm3 (3.8-10.6)
[2025-01-28 02:56] LABS: Alanine Aminotransferase 435 U/L (10-49); Albumin, Serum 4.4 gm/dL (3.5-5.0); Albumin/Globulin Ratio 1.7 (1.2-2.2); Alkaline Phosphatase 178 U/L (46-116); Anion Gap 12 (7-16); Aspartate Amino Transferase 289 U/L (0-34); BUN/Creatinine Ratio 8 Ratio (12-20); Bilirubin,Total 0.8 mg/dL (0.3-1.2); Blood Urea Nitrogen 9 mg/dL (9-23); Calcium 9.2 mg/dL (8.3-10.6); Calcium (Corrected) 9.2 mg/dL (8.5-10.1); Carbon Dioxide 26.6 mMol/L (20.0-31.0); Chloride 102 mMol/L (98-107); Creatinine (Component) 1.1 mg/dL (0.6-1.3); Estimated Creatinine Clearance 83.8 mL/min (>60); Globulin 2.6 gm/dL (2.3-3.5); Glucose 125 mg/dL (74-106); Lipase 31 U/L (12-53); Osmolality,Calculated 280 (275-295); Potassium 3.7 mMol/L (3.4-5.1); Sodium 141 mMol/L (136-145); Total Protein 7.0 gm/dL (5.7-8.2); Triglycerides 100 mg/dL (30-150); eGFR > 60 See Note
[2025-01-28 04:09] VITALS: BP 179/98; PULSE 62; RESP 15; TEMP 37; O2SAT 95
--- NOTE | 2025-01-28 04:18 | PD.EDABDPN ---
ED Abdominal Pain RME/HPI General Chief Complaint: Abdominal Pain Stated complaint: RIGHT ABD PAIN Time seen by provider: 01/28/25 02:08 Arrival date/time: 01/28/25 01:46 39M with history of HTN and cholecystectomy 2 days ago presents to ED with 1 day of worsening RUQ/epigastric pain. Patient has been taking prescribed pain meds. Limitations: no limitations Related Data Home Medications ?Medication ?Instructions ?Recorded ?Confirmed lisinopril 20 mg tablet 20 mg PO QDAY 01/24/25 01/30/25 Previous Rx's ?Medication ?Instructions ?Recorded oxycodone-acetaminophen 5 mg-325 1 tab PO Q4H PRN pain #10 tabs 01/25/25 mg tablet Allergies Allergy/AdvReac Type Severity Reaction Status Date / Time No Known Allergies Allergy Verified 01/30/25 14:45 Review of Systems Review of Systems Systems Reviewed: All systems reviewed, normal except as documented Constitutional Constitutional: Reports system reviewed and no additional complaints, except as documented, Denies fever(s) and Denies headache(s) ENT Ears, Nose, Mouth, and Throat: Denies disequilibrium and Denies headache(s) Cardiovascular Cardiovascular: Reports system reviewed and no additional complaints, except as documented, Denies chest pain and Denies dyspnea Respiratory Respiratory: Reports system reviewed and no additional complaints, except as documented, Denies cough and Denies dyspnea Gastrointestinal Gastrointestinal: Reports system reviewed and no additional complaints, except as documented, Reports as per HPI, Reports abdominal pain, Denies nausea and Denies vomiting Neurologic Neurologic: Reports system reviewed and no additional complaints, except as documented, Denies confusion, Denies disequilibrium and Denies headache(s) Psychiatric Psychiatric: Denies confusion Past Medical History Past Medical History NEUROLOGIC: Negative Neurological Disorders or Seizures CARDIAC: Positive Cardiac Disorders and Hypertension; Negative Congestive Heart Failure RESPIRATORY: Negative Chronic Obstructive Pulmonary Disease (COPD) or Asthma GASTROINTESTINAL: Positive Gastrointestinal Disorders and Gall Bladder Disease GENITOURINARY: Negative Genitourinary Disorders or Renal Disease MUSCULOSKELETAL: Positive Musculoskeletal Disorders and Fractures (right arm) ENDOCRINE: Negative Endocrine Disorders, Diabetes Mellitus Type 1 or Diabetes Mellitus Type 2 HEMATOLOGIC: Negative Blood Disorders or Sickle Cell Disease OTHER HISTORY: Positive Hospitalization and Chicken Pox; Negative Autoimmune Disease, Shingles, Blood Transfusions, Blood Transfusion Reaction, Anesthesia Reactions or Cancer Family History FAMILY HISTORY: Positive Family Cardiac Disorders and Family Surgery; Negative Family Psychiatric Problems, Family Respiratory Disorders, Family Gastrointestinal Problems, Family Cancer or Family Anesthesia Reaction Social History SMOKING STATUS: Never smoker ED Exam General Limitations: Present no limitations General appearance: Present alert and in no apparent distress Head Head exam: Present atraumatic Eye Eye exam: Present normal appearance, PERRL and EOMI ENT ENT exam: Present normal exam, normal oropharynx and mucous membranes moist Neck Neck exam: Present normal inspection, full ROM and trachea midline Chest Chest inspection: Present normal inspection and symmetric chest wall rise Respiratory Respiratory exam: Present normal lung sounds bilaterally Cardiovascular Cardiovascular exam: Present regular rate, normal rhythm and normal heart sounds Abdominal Exam Abdominal exam: Present soft and normal bowel sounds Abdominal tenderness: Present epigastrium Extremities Exam Extremities exam: Present normal inspection and full ROM Back Exam Back exam: Present normal inspection and full ROM Neurological Exam Neurological exam: Present alert, oriented X3 and CN II-XII intact Psychiatric Psychiatric exam: Present normal affect and normal mood Skin Skin exam: Present warm, dry, intact and normal color Course Quality Measures none Orders Category Date Time Status CT Screening NOW Care 01/28/25 02:12 Completed Insert IV NOW Care 01/28/25 02:[address] abdomen pelvis w con Stat Exams 01/28/25 02:12 Completed US gall bladder Stat Exams 01/28/25 02:26 Completed CBC Stat Lab 01/28/25 02:30 Completed CMP [Comprehensive Metabolic Panel] Stat Lab 01/28/25 02:30 Completed Lipase Stat Lab 01/28/25 02:30 Completed Triglycerides Stat Lab 01/28/25 02:30 Completed Urinalysis, C/S if Indicated Stat Lab 01/28/25 08:20 Completed Lisinopril [Prinivil] Med 01/28/25 07:44 Discontinued 20 mg PO X1 ONE Morphine Inj Med 01/28/25 02:12 Discontinued 5 mg IVP X1 ONE Ondansetron Inj [Zofran Inj] Med 01/28/25 02:12 Discontinued 4 mg IV X1 ONE Vital Signs Vital signs: Vital Signs Temperature 98 F 01/28/25 01:57 Pulse Rate 66 01/28/25 01:57 Respiratory Rate 19 01/28/25 01:57 Blood Pressure 178/104 H 01/28/25 01:57 Pulse Oximetry (%) 96 01/28/25 01:57 Oxygen Delivery Method Room Air 01/28/25 01:57 O2 at 96% on RA and WNLs Abdominal Pain MDM MDM Narrative MDM Narrative:: 39M with history of HTN and cholecystectomy 2 days ago presents to ED with 1 day of worsening RUQ/epigastric pain. Patient has been taking prescribed pain meds. Physical exam reveals epigastric tenderness. Patient is afebrile, alert, but appears to be in pain. Minimal leukocytosis. LFTs elevated (as expected), but normal bili and lipase. Care signed out to Dr. Sumner pending official report and dispo. Patient eventually discharged. Patient data External records reviewed:: [facility] previous records Clinical information provided by:: patient Social determinants that could affect healthcare access:: none Patient has the following chronic illnesses:: HTN How is presenting disease/condition affected by chronic disease/condition?: uneffected by Evaluation data The following diagnostics were reviewed and interpreted by me:: lab results and radiology exam(s) Lab and/or radiology exams considered but not ordered:: ordered Interpretation Summary: above Medications / Prescriptions Medications or Prescriptions considered but not ordered:: ordered Medication administrations:: Medication Administration History Discontinued Medications Lisinopril (Lisinopril 20 Mg Tablet) 20 mg PO X1 ONE Stop: 01/28/25 07:45 Last Admin: 01/28/25 07:57 Dose: 20 mg Documented By: GM Morphine Sulfate (Morphine Sulf Inj 10 Mg/Ml Vial) 5 mg IVP X1 ONE Stop: 01/28/25 02:13 Last Admin: 01/28/25 02:35 Dose: 5 mg Documented By: WANG Ondansetron HCl (Ondansetron Inj 2 Mg/Ml Inj 2 Ml) 4 mg IV X1 ONE; Protocol Stop: 01/28/25 02:13 Last Admin: 01/28/25 02:35 Dose: 4 mg Documented By: WANG above Consultations Consultation(s) initiated? (list below): No Diagnosis Differential diagnosis abdominal pain: abdominal pain, acute appendicitis, calculus of kidney, constipation, diverticulitis, gastroenteritis, pancreatitis, small bowel obstruction and other (pancreatic cyst) Most likely diagnosis given after review of the tests above:: pancreatic cyst Admission Indicated Admission indicated?: not indicated Admission Request Was there a request for admission?: No Disposition Plan Disposition Plan: Discharge Discharge Attestation Discharge Attestation: The patient and all family members were given an opportunity to ask questions and understood the discharge instructions. Discharge instructions specifically effects, indications for sooner follow up or return to the emergency department, and the expected course of current diagnosis. Patient condition: Stable Discharge Plan Plan Patient Disposition: HOME (Self Care) Prescriptions/Referrals Prescriptions/Med Rec: No Action lisinopril 20 mg tablet 20 mg PO QDAY oxycodone-acetaminophen 5-325 mg tablet 1 tab PO Q4H MDD 6 tabs PRN (Reason: pain) Qty: 10 0RF Rx Instructions: Take 1 tablet every 4-6 hours as needed for moderate to severe pain Referrals: No Primary/Family,Physician [Primary Care Provider] - In 1 week Problem List Clinical Impression: Post-operative pain, Status post laparoscopic cholecystectomy, Acute atelectasis Patient/Caregiver Discharge Instructions Education Materials: Atelectasis Additional Instructions: As discussed return if you are getting worse. Contact your surgeon for reevaluation in 1 to 2 days. Use the incentive spirometer to avoid complication of pneumonia. Your CT scan today revealed no acute postoperative complication. Print Language: Mongolian
--- NOTE | 2025-01-28 04:40 | PRELIM_ITS ---
CT scan of the abdomen and pelvis with intravenous contrast (axial sections with sagittal and coronal reformats); January 28, 2025 at 0257 hours Clinical History: RUQ/epigastric pain, status post cholecystectomy. Comparison: No prior study is available for comparison. Findings: Bibasilar dependent and streaky atelectasis is present. A triangular opacity in the right lower lobe with air bronchograms, which may represent atelectasis versus pneumonia. There is a small amount of right pleural effusion. The gallbladder is surgically absent. There are postoperative changes related to recent cholecystectomy; as minimal free fluid at the operative bed, air loculi (intraabdominal and subcutaneous) and fat straining as well as mild thickening and enhancement of the hepatic flexure of the colon. There is a 2.2 cm cyst related to the pancreatic tail. Small hypodense lesion is noted in the left kidneys, too small to characterize. The liver, spleen, right kidney and adrenals are unremarkable. No evidence of bowel obstruction. The appendix is within normal limits (Coronal images 80-85/152). There are occasional colonic diverticula without evidence of diverticulitis. A moderate amount of fecal material is noted within the ascending colon. There is no mesenteric or retroperitoneal adenopathy. The urinary bladder is unremarkable. There is no free air. A small fat- containing umbilical and left inguinal hernia is present. Mild degenerative changes are identified in the spine. Impression: 1. Status post recent cholecystectomy with multiple regional postoperative changes as above described. 2. No evidence of bowel obstruction, free air or abscess. 3. Other findings as described above. Report Electronically Signed By: Mauri Grijalva 01/28/2025 4:39:54 AM [EST]
--- NOTE | 2025-01-28 04:56 | PRELIM_ITS ---
Gallbladder ultrasound. January 28, 2025 at 0238 hours Clinical history: Monitor CBD; s/p cholecystectomy. Technique: Grayscale and color flow images of the abdomen are provided. Hepatic and portal veins were also imaged with color flow images. Comparison: No prior study is available for comparison. Findings: Status post recent cholecystectomy. No discrete collection is seen in the gallbladder fossa. The common duct is normal in caliber at 3 mm. The visualized liver is normal in echogenicity without mass or ductal dilatation. The main portal vein is patent and demonstrates hepatopetal flow. The pancreas is unremarkable to the extent visualized. No free fluid is demonstrated on the submitted images. The inferior vena cava is within normal limits to the extent visualized. Impression: Post recent cholecystectomy. No evidence of discrete collection in the gallbladder fossa. No sonographic evidence of biliary obstruction. Report Electronically Signed By: Mauri Grijalva 01/28/2025 4:55:45 AM [EST]
[2025-01-28 06:07] VITALS: BP 153/97; PULSE 71; RESP 20; TEMP 36.8; O2SAT 95
[2025-01-28 07:38] VITALS: BP 150/96; PULSE 62; RESP 18; TEMP 36.9; O2SAT 94
[2025-01-28 07:57] VITALS: BP 150/96; PULSE 66
--- NOTE | 2025-01-28 08:29 | PD.EDADDENDU ---
Emergency Room Addendum <Norma Wu - Last Filed: 01/28/25 10:34> Addendum Narrative: 0600: Care assumed from Helio Rivers. Past medical, surgical, social and family history reviewed. Vitals and home medications reviewed. I will assume the care of the patient at this time. Please refer to the emergency department record for history and examination from initial visit.? Physical exam by me shows patient under no acute distress at this time. 39-year-old male with history of hypertension and 2 days post op cholecystectomy presents to the Emergency Department with 1 day of worsening right upper quadrant and epigastric pain. He has been taking his prescribed pain medications as directed. No additional symptoms reported at this time. Differential diagnoses: Postoperative complication like bile leak, intra-abdominal abscess, and retained common bile duct stone. Discussed radiology results with Dr. Johnson at [address]22 hours. I reviewed the CT reports and discussed this with radiology and there is no evidence of any postoperative complication there is no abscess there is no biliary leak. There is minimal free air present residual from the lap ortiz. Patient's belly is benign on my reexamination has some vague tenderness. The trocar sites look good. He is ambulatory vital signs are stable he is got some minimal atelectasis in the right base but no fever no sputum and most likely related to postoperative atelectasis. Patient was advised at great length we will give him an incentive spirometer and he is going to call Dr. Jenkins for follow-up in 1 to 2 days and he knows return if getting worse. The was present also agrees understands. 0900: Patient remains clinically stable throughout the emergency department visit. Re-assessment at the time of disposition demonstrates that the patient is in no acute distress. We reviewed all the results, analysis, and treatment plans. Patient is amenable to discharge. Strict return precautions were outlined. Patient was discharged in stable condition. <Dat Sumner MD - Last Filed: 01/28/25 10:44> Addendum Narrative: 0600: Care assumed from Helio Rivers. Past medical, surgical, social and family history reviewed. Vitals and home medications reviewed. I will assume the care of the patient at this time. Please refer to the emergency department record for history and examination from initial visit.? Physical exam by me shows patient under no acute distress at this time. 39-year-old male with history of hypertension and 2 days post op cholecystectomy presents to the Emergency Department with 1 day of worsening right upper quadrant and epigastric pain. He has been taking his prescribed pain medications as directed. No additional symptoms reported at this time. Differential diagnoses: Postoperative complication like bile leak, intra-abdominal abscess, and retained common bile duct stone. I reviewed the CT reports and discussed this with radiology and there is no evidence of any postoperative complication there is no abscess there is no biliary leak. There is minimal free air present residual from the lap ortiz. Patient's belly is benign on my reexamination has some vague tenderness. The trocar sites look good. He is ambulatory vital signs are stable he is got some minimal atelectasis in the right base but no fever no sputum and most likely related to postoperative atelectasis. Patient was advised at great length we will give him an incentive spirometer and he is going to call Dr. Arias for follow-up in 1 to 2 days and he knows return if getting worse. The was present also agrees understands. Results <Normabran Wu - Last Filed: 01/28/25 10:34> Objective Laboratory: Laboratory Last Values WBC 11.3 Thou/mm3 (3.8-10.6) H 01/28/25 02:30 RBC 4.81 Miln/mm3 (4.50-5.90) 01/28/25 02:30 Hgb 14.9 g/dL (13.5-16.0) 01/28/25 02:30 Hct 43.4 % (41.0-53.0) 01/28/25 02:30 MCV 90 fL (80-100) 01/28/25 02:30 MCH 31.0 pg (25.0-35.0) 01/28/25 02:30 MCHC 34.3 g/dl (31.0-37.0) 01/28/25 02:30 RDW Std Deviation 40.2 fL (35.1-43.9) 01/28/25 02:30 Plt Count 261 Thou/mm3 (140-440) 01/28/25 02:30 Neut % (Auto) 65 % (37-80) 01/28/25 02:30 Lymph % (Auto) 25 % (10-50) 01/28/25 02:30 [place] % (Auto) 7 % (0-12) 01/28/25 02:30 Eos % (Auto) 3 % (0-10) 01/28/25 02:30 Baso % (Auto) 0 % (0-2.5) 01/28/25 02:30 Neut # (Auto) 7.3 Thou/mm3 (1.8-7.7) 01/28/25 02:30 Lymph # (Auto) 2.8 Thou/mm3 (1.0-4.8) 01/28/25 02:30 [place] # (Auto) 0.8 Thou/mm3 (0.0-0.8) 01/28/25 02:30 Eos # (Auto) 0.3 Thou/mm3 (0.0-0.5) 01/28/25 02:30 Baso # (Auto) 0.1 Thou/mm3 (0.0-0.2) 01/28/25 02:30 Immature Gran # (Auto) 0.02 Thou/mm3 (0.00-0.00) H 01/28/25 02:30 Absolute Nucleated RBC 0.00 Thou/mm3 (0.00-0.00) 01/28/25 02:30 Immature Gran % 0 % (0-0) 01/28/25 02:30 Nucleated RBC % 0 /100 WBC (0) 01/28/25 02:30 Sodium 141 mMol/L (136-145) 01/28/25 02:30 Potassium 3.7 mMol/L (3.4-5.1) 01/28/25 02:30 Chloride 102 mMol/L (98-107) 01/28/25 02:30 Carbon Dioxide 26.6 mMol/L (20.0-31.0) 01/28/25 02:30 Anion Gap 12 (7-16) 01/28/25 02:30 BUN 9 mg/dL (9-23) 01/28/25 02:30 Creatinine 1.1 mg/dL (0.6-1.3) 01/28/25 02:30 Estim Creat Clear Calc 83.8 mL/min (>60) 01/28/25 02:30 eGFR > 60 See Note (60-) 01/28/25 02:30 BUN/Creatinine Ratio 8 Ratio (12-20) L 01/28/25 02:30 Glucose 125 mg/dL (74-106) H 01/28/25 02:30 Calculated Osmolality 280 (275-295) 01/28/25 02:30 Calcium 9.2 mg/dL (8.3-10.6) 01/28/25 02:30 Corrected Calcium 9.2 mg/dL (8.5-10.1) 01/28/25 02:30 Total Bilirubin 0.8 mg/dL (0.3-1.2) 01/28/25 02:30 AST 289 U/L (0-34) H 01/28/25 02:30 ALT 435 U/L (10-49) H 01/28/25 02:30 Alkaline Phosphatase 178 U/L (46-116) H 01/28/25 02:30 Total Protein 7.0 gm/dL (5.7-8.2) 01/28/25 02:30 Albumin 4.4 gm/dL (3.5-5.0) 01/28/25 02:30 Globulin 2.6 gm/dL (2.3-3.5) 01/28/25 02:30 Albumin/Globulin Ratio 1.7 (1.2-2.2) 01/28/25 02:30 Triglycerides 100 mg/dL (30-150) 01/28/25 02:30 Lipase 31 U/L (12-53) 01/28/25 02:30 Imaging: Procedure(s): CT abdomen pelvis w con Accession Number(s): [id number] cc: Juarez Johnson MD; NO PRIMARY/FAMILY,PHYSICIAN; Helio Rivers PA-C~ Examination: CT abdomen with intravenous contrast CT pelvis with intravenous contrast 2-D coronal reconstructions 2-D sagittal reconstructions Date and time of exam:January 28, 2025, 0257 hours INDICATIONS: Status post cholecystectomy January 25, 2025 with epigastric pain and right upper abdominal pain postop. CTDI: vol (mGy) 6.80. DLP: (mGycm) 445. Technique: Multiple axial sections of the abdomen and pelvis have been obtained. 64 slice high-resolution scanner used. 3 mm axial sections have been obtained, post intravenous injection 60 cc Isovue 370. 2-D sagittal, coronal reconstructions obtained. Low dose protocols were performed. One or more of the following dose reduction techniques were used; automated exposure control, adjustment of the mA and/or KV according to patient size, use of iterative reconstruction technique. Findings: Atelectasis versus pneumonia right base Pneumoperitoneum Postoperative change in the anterior abdominal wall Surgical clips in the gallbladder fossa with very minimal postoperative changes No gallbladder fossa abscess, no biloma 14 mm cyst in the tail of pancreas Normal adrenal glands 10 mm left renal cyst Normal appendix No bowel obstruction No diverticulitis Urinary bladder are intact No prostatomegaly Small fat-containing left inguinal hernia IMPRESSION: Minor postoperative changes postcholecystectomy No abscess in the gallbladder fossa No biloma noted 14 mm cyst in the tail of pancreas Normal appendix No bowel obstruction Dictated By: Juarez Johnson MD Procedure(s): US gall bladder Accession Number(s): [id number] cc: Juarez Johnson MD; NO PRIMARY/FAMILY,PHYSICIAN; Helio Rivers PA-C~ Examination: Abdomen sonogram, Limited Date and time of exam: January 28, 2025, 0238 hours INDICATIONS: Status post cholecystectomy 3 days ago with right upper abdominal pain, severe Technique: Real-time blake scale transabdominal sonographic images of the upper abdomen obtained. Findings: No abscess in the gallbladder fossa Common bile duct 0.3 cm no stones Pancreatic area 2.8 cm Liver 15.3 cm no focal liver lesions Normal hepatopedal portal venous flow Patent IVC IMPRESSION: No abscess or biloma in the gallbladder fossa Dictated By: Juarez Johnson MD <Dat Sumner MD - Last Filed: 01/28/25 10:44> Objective Laboratory: Laboratory Last Values WBC 11.3 Thou/mm3 (3.8-10.6) H 01/28/25 02:30 RBC 4.81 Miln/mm3 (4.50-5.90) 01/28/25 02:30 Hgb 14.9 g/dL (13.5-16.0) 01/28/25 02:30 Hct 43.4 % (41.0-53.0) 01/28/25 02:30 MCV 90 fL (80-100) 01/28/25 02:30 MCH 31.0 pg (25.0-35.0) 01/28/25 02:30 MCHC 34.3 g/dl (31.0-37.0) 01/28/25 02:30 RDW Std Deviation 40.2 fL (35.1-43.9) 01/28/25 02:30 Plt Count 261 Thou/mm3 (140-440) 01/28/25 02:30 Neut % (Auto) 65 % (37-80) 01/28/25 02:30 Lymph % (Auto) 25 % (10-50) 01/28/25 02:30 [place] % (Auto) 7 % (0-12) 01/28/25 02:30 Eos % (Auto) 3 % (0-10) 01/28/25 02:30 Baso % (Auto) 0 % (0-2.5) 01/28/25 02:30 Neut # (Auto) 7.3 Thou/mm3 (1.8-7.7) 01/28/25 02:30 Lymph # (Auto) 2.8 Thou/mm3 (1.0-4.8) 01/28/25 02:30 [place] # (Auto) 0.8 Thou/mm3 (0.0-0.8) 01/28/25 02:30 Eos # (Auto) 0.3 Thou/mm3 (0.0-0.5) 01/28/25 02:30 Baso # (Auto) 0.1 Thou/mm3 (0.0-0.2) 01/28/25 02:30 Immature Gran # (Auto) 0.02 Thou/mm3 (0.00-0.00) H 01/28/25 02:30 Absolute Nucleated RBC 0.00 Thou/mm3 (0.00-0.00) 01/28/25 02:30 Immature Gran % 0 % (0-0) 01/28/25 02:30 Nucleated RBC % 0 /100 WBC (0) 01/28/25 02:30 Sodium 141 mMol/L (136-145) 01/28/25 02:30 Potassium 3.7 mMol/L (3.4-5.1) 01/28/25 02:30 Chloride 102 mMol/L (98-107) 01/28/25 02:30 Carbon Dioxide 26.6 mMol/L (20.0-31.0) 01/28/25 02:30 Anion Gap 12 (7-16) 01/28/25 02:30 BUN 9 mg/dL (9-23) 01/28/25 02:30 Creatinine 1.1 mg/dL (0.6-1.3) 01/28/25 02:30 Estim Creat Clear Calc 83.8 mL/min (>60) 01/28/25 02:30 eGFR > 60 See Note (60-) 01/28/25 02:30 BUN/Creatinine Ratio 8 Ratio (12-20) L 01/28/25 02:30 Glucose 125 mg/dL (74-106) H 01/28/25 02:30 Calculated Osmolality 280 (275-295) 01/28/25 02:30 Calcium 9.2 mg/dL (8.3-10.6) 01/28/25 02:30 Corrected Calcium 9.2 mg/dL (8.5-10.1) 01/28/25 02:30 Total Bilirubin 0.8 mg/dL (0.3-1.2) 01/28/25 02:30 AST 289 U/L (0-34) H 01/28/25 02:30 ALT 435 U/L (10-49) H 01/28/25 02:30 Alkaline Phosphatase 178 U/L (46-116) H 01/28/25 02:30 Total Protein 7.0 gm/dL (5.7-8.2) 01/28/25 02:30 Albumin 4.4 gm/dL (3.5-5.0) 01/28/25 02:30 Globulin 2.6 gm/dL (2.3-3.5) 01/28/25 02:30 Albumin/Globulin Ratio 1.7 (1.2-2.2) 01/28/25 02:30 Triglycerides 100 mg/dL (30-150) 01/28/25 02:30 Lipase 31 U/L (12-53) 01/28/25 02:30
[2025-01-28 08:51] LABS: Collection Type, Urine Clean Catch; Squamous Epithelial Cell,Urine 0 /hpf (0-5)
[2025-01-28 09:08] LABS: Bilirubin,Urine Negative (Negative); Blood,Urine Negative (Negative); Clarity,Urine Clear (Clear/Hazy); Color,Urine Lt-Yellow (Lt Yel-Yel); Culture Indicated,Urine Not Indicated; Glucose, Urine Negative (Negative); Ketones,Urine 1+ (Negative); Leukocyte Esterase,Urine Negative (Negative); Nitrite,Urine Negative (Negative); PH,Urine 6.5 (5.0-7.0); Protein,Urine Negative (Neg - Trace); RBC,Urine 1 /hpf (0-3); Specific Gravity,Urine 1.034 (1.001-1.035); Urobilinogen,Urine Negative mg/dL (0.0-1.0); WBC,Urine < 1 /hpf (0-5)
[2025-01-28 09:12] VITALS: BP 140/99; PULSE 74; RESP 15; TEMP 37.2; O2SAT 94
--- NOTE | 2025-01-28 09:15 | PC.NURSE ---
PT GIVEN INCENTIVE SPIROMETER & EDUCATION ON PROPER USE PRIOR TO DISCHARGE.
== END 2025-01-28 09:21 | disposition home or self-care (01) ==
PROVIDERS: Physician Assistant; Emergency Provider Emergency Medicine
DX: G89.18 Other acute postprocedural pain (principal); J98.11 Atelectasis; R10.13 Epigastric pain; D72.829 Elevated white blood cell count, unspecified; Z90.49 Acquired absence of other specified parts of digestive tract; I10 Essential (primary) hypertension; Z79.899 Other long term (current) drug therapy
CPT/HCPCS: 36415; 74177; 76705; 80053; 81001; 83690; 84478; 85025; 96374; 99283; A4649; J2270; J2405; Q9967; A9270

== ENCOUNTER 2025-01-30 14:28 | Outpatient (AMB) | payer BC, SELFPAY ==
--- NOTE | 2025-01-30 14:42 | GSCOFFNT_ITS ---
Vital Signs - [facility] 01/30/25 14:44 Height 1.63 m Height Method Measured Weight 74.021 kg Weight Measurement Method Standing Scale BMI 28.0 BP 124/83 Blood Pressure Source Automatic Cuff Blood Pressure Location Left Upper Arm Position Sitting Respiration 18 Pulse 82 Pulse Source Monitor Temp 98 F Temp Source Temporal Artery Scan Pulse Oximetry (%) 95 Oxygen Delivery Method Room Air Med/Allergies Allergies & Medications Allergies No Known Allergies Allergy (Verified 01/30/25 14:45) Medication Reconciliation lisinopril 20 mg tablet 20 mg PO QDAY 01/24/25 [History Confirmed 01/30/25] oxycodone-acetaminophen 5 mg-325 mg tablet 1 tab PO Q4H PRN pain #10 tabs 01/25/25 [Rx Confirmed 01/30/25] MA Intake Visit Data Collection New Patient or Established: Established Patient (seen at [facility] within 3 years) Seen by Clinical Staff ONLY (RN/MA): No Reason for Visit:: POST OP LAP ORTIZ Pain Present Currently: No Dishwasher Busser Required: No PCP or OBGYN visit in last 3 months: Yes Hx Now: No Do You Feel Safe at Home: Yes Authorities Contacted: N/A Smoking Status Smoking Status: Never smoker Immunization / Flu Flu Vaccine in the Last 12 Months: No Flu Vaccine Exclusion Criteria: Refused by Patient Past Medical History Past Medical History NEUROLOGIC: Negative Neurological Disorders or Seizures CARDIAC: Positive Cardiac Disorders and Hypertension; Negative Congestive Heart Failure RESPIRATORY: Negative Chronic Obstructive Pulmonary Disease (COPD) or Asthma GASTROINTESTINAL: Positive Gastrointestinal Disorders and Gall Bladder Disease GENITOURINARY: Negative Genitourinary Disorders or Renal Disease MUSCULOSKELETAL: Positive Fractures (right arm) ENDOCRINE: Negative Endocrine Disorders, Diabetes Mellitus Type 1 or Diabetes Mellitus Type 2 HEMATOLOGIC: Negative Blood Disorders or Sickle Cell Disease OTHER HISTORY: Positive Hospitalization and Chicken Pox; Negative Autoimmune Disease, Shingles, Blood Transfusions, Blood Transfusion Reaction, Anesthesia Reactions or Cancer Family History FAMILY HISTORY: Positive Family Cardiac Disorders and Family Surgery; Negative Family Psychiatric Problems, Family Respiratory Disorders, Family Gastrointestinal Problems, Family Cancer or Family Anesthesia Reaction Social History SMOKING STATUS: Smoking status: Never smoker ALCOHOL: Alcohol Intake: Never HOUSING: Housing: House HPI HPI Narrative 39M s/p lap cholecystectomy 01/25/25 for symptomatic cholelithiasis here for early follow up due to pain. Pt states over the weekend he had severe back pain making it difficult for him to move; he went to both [facility] ER and [facility] ER over the weekend and both times underwent CT AP which did not show any evidence of fluid collection in the gallbladder fossa and bilirubin was normal each time though LFTs slightly elevated. Pt reports his main concern was severe back pain making it difficult for him to move but he was also constipated during this time, and states that he feels better after having BMs which are now diarrhea. He has had minimal appetite so is not yet eating solid foods but denies any fever or jaundice and he is now more mobile On both CTs done over the weekend pt was noted to have a cyst at the pancreatic tail, measuring 14mm on our CT and 28mm at ROS Review of Systems Systems Reviewed: All systems reviewed, normal except as documented Objective/Exam General General Appearance: alert, cooperative and well groomed Resp Respiratory exam: Absent respiratory distress Abdominal Abdominal exam: Present soft and incision (c/d/i, no erythema, no fluctuance or tenderness); Absent distention or tenderness Results Pathology of gallbladder reviewed CTs from and [facility] reviewed Assessment & Plan Diagnosis / Problem List (1) Pancreatic cyst: Status: Acute Assessment & Plan: 39M s/p lap ortiz 01/25 with incidental finding of pancreatic cyst on postop imaging Plan: MRCP to further characterize (2) Status post laparoscopic cholecystectomy: Status: Acute Assessment & Plan: Pt states his main complaint over the weekend was severe back pain which has since resolved; it is possible this is from him laying down more than usual but also maybe related to some extent to his constipation which has since improved. Pt will follow up next week with me as planned Orders: Orders MR MRCP 2 Weeks K86.2 - Cyst of pancreas Office Procedures GNS Level of Care Nursing/Assessment Patient Status: Established Patient Nursing Assessment/Reassesment: Medication Reconciliation, Update PMH in EMR and Vital Signs Coordination of Care: Complex Care and Chronic Disease 1-5, Consent,records obtained, informed consent, Education Simp Pt/Fam, Results/Orders obtained and Staff clarify orders Established Patient Charge Established Patient Point Assignment: 90 Established Patient Point Charge: EP Level 3 (80-115) Patient Portal Questionaires Social History Living Situation History Housing: House Tobacco History Smoking Status: Never smoker Alcohol History Alcohol Intake: Never Domestic Abuse History Do You Feel Safe at Home: Yes Review of Systems Report any current symptoms Only answer those that you have currently: Past Medical History Past Medical History Have you ever been diagnosed with any of the following: Neurological Problems Seizures: No Cardiology Problems Congestive Heart Failure: No Hypertension: Yes Respiratory Problems Chronic Obstructive Pulmonary Disease (COPD): No Asthma: No Stomache/Intestinal Problems Gall Bladder Disease: Yes Genital/Urinary Problems Renal Disease: No Musculoskeletal Problems Fractures: Yes (right arm) Endocrine Problems Diabetes Mellitus Type 1: No Diabetes Mellitus Type 2: No Blood Problems Sickle Cell Disease: No Other Problems Hospitalization: Yes Autoimmune Disease: No Shingles: No Blood Transfusions: No Blood Transfusion Reaction: No Anesthesia Reactions: No Chicken Pox: Yes Cancer: No
[2025-01-30 14:44] VITALS: BP 124/83; PULSE 82; RESP 18; TEMP 36.6; O2SAT 95; BMI 28.0
== END 2025-01-30 15:09 | disposition home or self-care (01) ==
LOC: HODSRG 14:28
PROVIDERS: PCP Family Medicine; Referring Provider Family Medicine; Supervising Provider Surgery; Visit Provider Surgery
DX: Z48.815 Encounter for surgical aftercare following surgery on the digestive system (principal); K86.2 Cyst of pancreas; M54.9 Dorsalgia, unspecified; I10 Essential (primary) hypertension
CPT/HCPCS: 99213; G0463

== ENCOUNTER → 2025-04-10 | Outpatient (CLI) | payer BC, SELFPAY ==
--- NOTE | 2025-04-10 09:30 | XR_ITS ---
MRI abdomen, without contrast. MRCP Date and time of exam: April 10, 2025, 10:31 a.m. INDICATIONS: This 14 mm cystic lesion tail of the pancreas on CT abdomen January 28, 2025 Technique: Multiple axial and coronal images of the abdomen have been obtained with the Siemens 1.5T MRI scanner. Images obtained included T1 weighted transverse images, T2-weighted transverse images, T2-weighted transverse images fat-suppressed, T2 weighted haste fat suppressed transverse images, T1 weighted images, in and out of phase images, T2-weighted coronal images, breath hold, T2 weighted haze coronal images as well as T2 weighted coronal thick slab images, MRCP. Findings: No focal liver lesions or biliary tract dilatation Normal common hepatic common bile duct Complex partially cystic mass in the tail the pancreas 18 x 14 mm 12 mm liver cyst Spleen is not enlarged No hydronephrosis No abdominal lymphadenopathy No ascites IMPRESSION: Complex partially cystic mass in the tail of the pancreas 18 x 14 mm Recommend this patient return for repeat MRI pancreas images post intravenous contrast
== END | disposition home or self-care (01) ==
PROVIDERS: PCP Family Medicine; Referring Provider Surgery; Visit Provider Surgery
DX: K86.2 Cyst of pancreas (principal)
CPT/HCPCS: 74181